=== PATIENT | male | born 1945 | race Caucasian/White ===

== ENCOUNTER 2021-01-22 12:33 | Outpatient (CLI) | payer MEDICARE, OTHER | END 2021-01-22 12:34 | disposition home or self-care (01) | LOC: EEG 12:33 → BICMRI 12:34 | PROVIDERS: ATTEND Nurse Practitioner Acute Care | DX: G40.909 Epilepsy, unspecified, not intractable, without status epilepticus (principal) | CPT/HCPCS: 70553; 95816 ==

== ENCOUNTER 2021-11-30 07:06 | Outpatient (CLI) | payer MEDICARE, OTHER ==
[2021-11-30 09:14] LABS: #Basophils 0.1 10x3/uL (0.0-0.2); #Eosinphils 0.3 10x3/uL (0.0-0.5); #Monocytes 0.7 10x3/uL (0.0-1.1); %Eosinophils 5.1 % (0.0-6.0); %Lymphocytes 23.8 % (18.0-47.0); %Monocytes 9.8 % (0.0-10.0); %Neutrophils 59.7 % (40.0-75.0); Hemoglobin 14.4 g/dL (13.5-17.5); Mean Corpuscular Hemoglobin 31.8 pg (27.0-33.0); Mean Corpuscular Volume 96.5 fl (81.2-95.1); Mean Platelet Volume 10.7 fl (7.4-10.4); Platelet Count 210 10x3/uL (150-450); RBC Distribution Width 12.6 % (11.5-14.5); Red Blood Cell (RBC) Count 4.53 10x6/uL (4.32-5.72); White Blood Cell (WBC) Count 6.7 10x3/uL (3.5-10.5)
[2021-11-30 10:06] LABS: Anion Gap 13 mmol/L (10-20); BUN (Urea Nitrogen) 12 mg/dL (8.4-25.7); Calc. Creatinine Clearance 0 mL/min (70-130); Calcium 8.8 mg/dL (7.8-10.44); Carbon Dioxide 25 mmol/L (23-31); Chloride 103 mmol/L (98-107); Glucose 88 mg/dL (83-110); Potassium 4.6 mmol/L (3.5-5.1); Sodium 136 mmol/L (136-145)
[2021-11-30 21:41] LABS: SARS-CoV-2 PCR by NAA Not Detected (NotDetected)
== END 2021-11-30 07:07 | disposition home or self-care (01) ==
LOC: LABBT 07:06
PROVIDERS: ATTEND Surgery
DX: Z01.818 Encounter for other preprocedural examination (principal); K43.2 Incisional hernia without obstruction or gangrene; Z20.822 Contact with and (suspected) exposure to COVID-19
CPT/HCPCS: 71046; 80048; 85025; U0003; U0005

== ENCOUNTER 2021-12-04 07:50 | Day surgery (SDC) | payer MEDICARE, OTHER ==
[2021-11-25 11:12] VITALS: BMI 25.8
[2021-12-04] MEDS ORDERED: Acetaminophen 500 MG TAB ONE ×2 (08:15→08:16)
[2021-12-04] MEDS ORDERED: Fentanyl 100 MCG/2 ML VIAL ONE ×3 (08:48→13:26)
[2021-12-04] MEDS ORDERED: Dexmedetomidine 200 MCG/2 ML VIAL ONE (08:48)
[2021-12-04] MEDS ORDERED: Bupivacaine 0.25% HCL 30 ML VIAL ONE (09:06)
[2021-12-04] MEDS ORDERED: EPINEPHrine 1 MG/ML AMP ONE (09:06)
[2021-12-04] MEDS ORDERED: ceFAZolin 2 GM/Dextrose 50 ML IVPB ONE (10:50)
[2021-12-04] MEDS ORDERED: ePHEDrine 50 MG/ML VIAL ONE (11:02)
[2021-12-04] MEDS ORDERED: Lidocaine 1% PF 5 ML VIAL ONE (11:02)
[2021-12-04] MEDS ORDERED: Glycopyrrolate 0.2 MG/ML 5 ML SYRINGE ONE (11:02)
[2021-12-04] MEDS ORDERED: Rocuronium Bromide 10 MG/ML (10ML VIAL) ONE (11:02)
[2021-12-04] MEDS ORDERED: Ondansetron PF 4 MG/2 ML Vial ONE ×2 (11:02→13:11)
[2021-12-04] MEDS ORDERED: PROPOFOL 200 MG/20 ML VIAL ONE (11:02)
[2021-12-04] MEDS ORDERED: Dexamethasone 20 MG/5 ML VIAL ONE (11:02)
[2021-12-04] MEDS ORDERED: Promethazine HCl 25 MG/ML VIAL ONE (14:13)
[2021-12-04] MEDS ORDERED: HYDROcodone/Acetaminophen 5/325 mg Tablet ONE (17:34)
== END 2021-12-04 18:10 | disposition home or self-care (01) ==
LOC: SDC 07:50
PROVIDERS: ATTEND Surgery
PROC: 0WUF4JZ Supplement Abdominal Wall with Synthetic Substitute, Percutaneous Endoscopic Approach (ICD-10-PCS; principal; 2021-12-04)
DX: K43.2 Incisional hernia without obstruction or gangrene (principal); K66.0 Peritoneal adhesions (postprocedural) (postinfection); G40.909 Epilepsy, unspecified, not intractable, without status epilepticus; Z79.83 Long term (current) use of bisphosphonates; Z79.899 Other long term (current) drug therapy; Z90.3 Acquired absence of stomach [part of]
CPT/HCPCS: 49654; C1713; C1781; J0171; J0690; J1100; J2405; J2550; J2704; J3010; J3490; S0020

== ENCOUNTER 2023-01-20 19:57 | Inpatient (IN) | payer MEDICARE ==
[2023-01-20] MEDS ORDERED: Ondansetron PF 4 MG/2 ML Vial IVP PRN (22:47)
[2023-01-20] MEDS ORDERED: Senokot S 8.6-50 MG TAB PO PRN (22:47)
[2023-01-20] MEDS ORDERED: Calcium Carbonate 500 MG ChewTAB PO PRN (22:47)
[2023-01-20] MEDS ORDERED: Ondansetron ODT 4 MG TAB PO PRN (22:47)
[2023-01-20 23:05] VITALS: BMI 25.1
[2023-01-20] MEDS ORDERED: Lorazepam 2 MG/ML VIAL SLOW IVP PRN (23:11)
[2023-01-20] MEDS ORDERED: Morphine 2 MG/ML VIAL SLOW IVP PRN (23:17)
[2023-01-20] MEDS ORDERED: Alendronate Sodium 70 mg Tablet PO SCH (23:45)
[2023-01-21] MEDS ORDERED: Lacosamide 50 mg Tablet PO SCH (01:00)
[2023-01-21] MEDS: HYDROcodone/Acetaminophen 5/325 mg Tablet PO PRN ×3 (01:24→21:37)
[2023-01-21 05:45] LABS: #Eosinphils 0.2 thou/uL (0.0-0.7); #Lymphocytes 0.9 thou/uL (1.20-3.40); #Monocytes 0.8 thou/uL (0.11-0.59); #Neutrophils 3.1 thou/uL (1.40-6.50); %Basophils 0.6 % (0.0-1.0); %Lymphocytes 18.1 % (21.0-51.0); %Monocytes 14.9 % (0.0-10.0); %Neutrophils 62.4 % (42.0-75.0); Hemoglobin 12.4 g/dL (14.0-18.0); Mean Corpuscular HGB CONC 33.5 g/dL (32.0-36.0); Mean Corpuscular Hemoglobin 32.4 pg (27.0-31.0); Mean Corpuscular Volume 96.9 fl (78.0-98.0); Mean Platelet Volume 8.9 fL (7.4-10.4); Platelet Count 155 10x3/uL (130-400); RBC Distribution Width 11.6 % (11.5-14.5); Red Blood Cell (RBC) Count 3.83 mill/uL (4.70-6.10)
[2023-01-21 05:59] LABS: ALT (SGPT) 31 U/L (8-55); AST (SGOT) 31 U/L (5-34); Albumin 3.1 g/dL (3.4-4.8); Alkaline Phosphatase 107 U/L (40-110); Anion Gap 10 mmol/L (10-20); BUN (Urea Nitrogen) 9 mg/dL (8.4-25.7); Bilirubin, Total 0.4 mg/dL (0.2-1.2); Calc. Creatinine Clearance 113 mL/min (70-130); Calcium 8.3 mg/dL (7.8-10.44); Carbon Dioxide 22 mmol/L (23-31); Chloride 106 mmol/L (98-107); Estimated GFR 99; Globulin 2.8 g/dL (2.4-3.5); Glucose 89 mg/dL (83-110); Magnesium 1.8 mg/dL (1.6-2.6); Protein, Total 5.9 g/dL (5.8-8.1); Sodium 134 mmol/L (136-145)
[2023-01-21] MEDS: Lacosamide 50 mg Tablet PO SCH ×2 (08:46→21:40)
[2023-01-21] MEDS: Thiamine 100 MG TAB PO SCH (08:48)
[2023-01-21] MEDS: levETIRAcetam 500 MG TAB PO SCH ×2 (08:48→21:39)
[2023-01-21] MEDS ORDERED: Lidocaine 4% Patch TD PRN (14:06)
[2023-01-21] MEDS ORDERED: clonazePAM 0.5 MG TAB PO PRN (14:11)
[2023-01-21] MEDS ORDERED: Iopamidol 370 76% 100 ML VIAL ONE (14:45)
[2023-01-21] MEDS: Acetaminophen 325 MG TAB PO PRN (18:04)
[2023-01-21] MEDS: Transdermal Patch Removal TOP SCH (23:37)
[2023-01-22] MEDS ORDERED: Lacosamide 50 mg Tablet PO SCH (01:00)
[2023-01-22 06:05] LABS: #Eosinphils 0.3 thou/uL (0.0-0.7); #Monocytes 0.5 thou/uL (0.11-0.59); #Neutrophils 2.8 thou/uL (1.40-6.50); %Basophils 0.3 % (0.0-1.0); %Eosinophils 6.7 % (0.0-10.0); %Lymphocytes 20.7 % (21.0-51.0); %Monocytes 10.7 % (0.0-10.0); %Neutrophils 61.5 % (42.0-75.0); Hemoglobin 12.8 g/dL (14.0-18.0); Mean Corpuscular HGB CONC 32.8 g/dL (32.0-36.0); Mean Corpuscular Hemoglobin 31.8 pg (27.0-31.0); Mean Corpuscular Volume 96.9 fl (78.0-98.0); Mean Platelet Volume 9.5 fL (7.4-10.4); Platelet Count 164 10x3/uL (130-400); RBC Distribution Width 11.7 % (11.5-14.5); Red Blood Cell (RBC) Count 4.03 mill/uL (4.70-6.10); White Blood Cell (WBC) Count 4.6 10x3/uL (4.8-10.8)
[2023-01-22 06:46] LABS: Anion Gap 12 mmol/L (10-20); BUN (Urea Nitrogen) 9 mg/dL (8.4-25.7); Calc. Creatinine Clearance 116 mL/min (70-130); Calcium 8.6 mg/dL (7.8-10.44); Carbon Dioxide 23 mmol/L (23-31); Chloride 105 mmol/L (98-107); Estimated GFR 100; Glucose 81 mg/dL (83-110); Potassium 4.1 mmol/L (3.5-5.1); Sodium 136 mmol/L (136-145)
[2023-01-22] MEDS: levETIRAcetam 500 MG TAB PO SCH ×2 (08:44→21:20)
[2023-01-22] MEDS: Cyanocobalamin (Vitamin B-12) 1,000 MCG TAB PO SCH (08:44)
[2023-01-22] MEDS: Lacosamide 50 mg Tablet PO SCH ×2 (08:44→21:21)
[2023-01-22] MEDS: Thiamine 100 MG TAB PO SCH ×2 (08:44→08:45)
[2023-01-22] MEDS: HYDROcodone/Acetaminophen 5/325 mg Tablet PO PRN ×2 (08:49→13:10)
[2023-01-22] MEDS ORDERED: Ergocalciferol 1.25 MG(50,000 UNITS) CAP PO SCH (09:00)
[2023-01-22] MEDS ORDERED: GoLYTELY 4,000 ml Bottle PO SCH (10:45)
[2023-01-22] MEDS: Transdermal Patch Removal TOP SCH (10:59)
[2023-01-22] MEDS ORDERED: Gadobenate Dimeglumine 529 MG/1 ML (20ML VIAL) ONE (15:10)
[2023-01-22] MEDS: HYDROcodone/Acetaminophen 10/325 mg Tablet PO PRN ×2 (16:53→21:19)
[2023-01-23] MEDS: Transdermal Patch Removal TOP SCH ×3 (00:24→19:08)
[2023-01-23 06:28] LABS: #Eosinphils 0.4 thou/uL (0.0-0.7); #Lymphocytes 1.1 thou/uL (1.20-3.40); #Monocytes 0.6 thou/uL (0.11-0.59); #Neutrophils 2.8 thou/uL (1.40-6.50); %Basophils 0.6 % (0.0-1.0); %Eosinophils 7.6 % (0.0-10.0); %Lymphocytes 22.3 % (21.0-51.0); %Monocytes 12.6 % (0.0-10.0); %Neutrophils 56.8 % (42.0-75.0); Hemoglobin 12.3 g/dL (14.0-18.0); Mean Corpuscular HGB CONC 33.4 g/dL (32.0-36.0); Mean Corpuscular Hemoglobin 32.6 pg (27.0-31.0); Mean Corpuscular Volume 97.6 fl (78.0-98.0); Mean Platelet Volume 8.8 fL (7.4-10.4); Platelet Count 173 10x3/uL (130-400); RBC Distribution Width 11.7 % (11.5-14.5); Red Blood Cell (RBC) Count 3.78 mill/uL (4.70-6.10)
[2023-01-23 06:48] LABS: Anion Gap 11 mmol/L (10-20); BUN (Urea Nitrogen) 11 mg/dL (8.4-25.7); Calc. Creatinine Clearance 113 mL/min (70-130); Calcium 8.3 mg/dL (7.8-10.44); Carbon Dioxide 29 mmol/L (23-31); Chloride 103 mmol/L (98-107); Estimated GFR 99; Glucose 82 mg/dL (83-110); Potassium 4.2 mmol/L (3.5-5.1); Sodium 139 mmol/L (136-145)
[2023-01-23] MEDS: Thiamine 100 MG TAB PO SCH (08:16)
[2023-01-23] MEDS: levETIRAcetam 500 MG TAB PO SCH ×2 (08:16→19:43)
[2023-01-23] MEDS: Cyanocobalamin (Vitamin B-12) 1,000 MCG TAB PO SCH (08:16)
[2023-01-23] MEDS ORDERED: PROPOFOL 200 MG/20 ML VIAL ONE (10:42)
[2023-01-23] MEDS ORDERED: Lidocaine 1% PF 5 ML VIAL ONE (10:42)
[2023-01-23] MEDS ORDERED: ePHEDrine 50 MG/ML VIAL ONE (10:42)
[2023-01-23] MEDS: HYDROcodone/Acetaminophen 10/325 mg Tablet PO PRN (12:44)
[2023-01-23] MEDS: Lacosamide 50 mg Tablet PO SCH ×2 (12:45→19:43)
[2023-01-24 06:33] LABS: #Eosinphils 0.3 thou/uL (0.0-0.7); #Lymphocytes 0.8 thou/uL (1.20-3.40); #Monocytes 0.7 thou/uL (0.11-0.59); #Neutrophils 4.3 thou/uL (1.40-6.50); %Basophils 0.1 % (0.0-1.0); %Eosinophils 4.2 % (0.0-10.0); %Lymphocytes 13.4 % (21.0-51.0); %Neutrophils 70.3 % (42.0-75.0); Hemoglobin 12.7 g/dL (14.0-18.0); Mean Corpuscular HGB CONC 32.9 g/dL (32.0-36.0); Mean Corpuscular Hemoglobin 31.9 pg (27.0-31.0); Mean Corpuscular Volume 97.1 fl (78.0-98.0); Mean Platelet Volume 8.7 fL (7.4-10.4); Platelet Count 169 10x3/uL (130-400); RBC Distribution Width 11.8 % (11.5-14.5); Red Blood Cell (RBC) Count 3.97 mill/uL (4.70-6.10)
[2023-01-24 06:56] LABS: ALT (SGPT) 39 U/L (8-55); AST (SGOT) 43 U/L (5-34); Albumin 2.9 g/dL (3.4-4.8); Alkaline Phosphatase 110 U/L (40-110); Anion Gap 12 mmol/L (10-20); BUN (Urea Nitrogen) 8 mg/dL (8.4-25.7); Bilirubin, Total 0.5 mg/dL (0.2-1.2); Calc. Creatinine Clearance 113 mL/min (70-130); Calcium 8.7 mg/dL (7.8-10.44); Carbon Dioxide 25 mmol/L (23-31); Chloride 103 mmol/L (98-107); Estimated GFR 99; Globulin 2.9 g/dL (2.4-3.5); Glucose 85 mg/dL (83-110); Potassium 4.7 mmol/L (3.5-5.1); Protein, Total 5.8 g/dL (5.8-8.1); Sodium 135 mmol/L (136-145)
[2023-01-24] MEDS: Transdermal Patch Removal TOP SCH ×2 (07:45→20:45)
[2023-01-24] MEDS: Cyanocobalamin (Vitamin B-12) 1,000 MCG TAB PO SCH (09:00)
[2023-01-24] MEDS: levETIRAcetam 500 MG TAB PO SCH ×2 (09:01→20:33)
[2023-01-24] MEDS: Thiamine 100 MG TAB PO SCH (09:01)
[2023-01-24] MEDS: Lacosamide 50 mg Tablet PO SCH ×2 (10:38→20:33)
[2023-01-24] MEDS ORDERED: Iopamidol-370 76% 500 ML 1 ML ONE (11:09)
[2023-01-24] MEDS: Acetaminophen 325 MG TAB PO PRN (20:34)
[2023-01-25] MEDS: Cyanocobalamin (Vitamin B-12) 1,000 MCG TAB PO SCH (08:18)
[2023-01-25] MEDS: levETIRAcetam 500 MG TAB PO SCH (08:18)
[2023-01-25] MEDS: Transdermal Patch Removal TOP SCH (08:19)
[2023-01-25] MEDS: Thiamine 100 MG TAB PO SCH (08:19)
[2023-01-25 08:58] VITALS: BP 116/71; TEMP 97.7
[2023-01-25] MEDS: Lacosamide 50 mg Tablet PO SCH (09:37)
== END 2023-01-25 11:29 | disposition home or self-care (01) | DRG 436 ==
LOC: MSONC 19:57 → OBSVTOIN 22:47
PROVIDERS: ADMIT Student in an Organized Health Care Education/Training Program; ATTEND Internal Medicine
PROC: 0DBK8ZX Excision of Ascending Colon, Via Natural or Artificial Opening Endoscopic, Diagnostic (ICD-10-PCS; principal; 2023-01-23)
PROC: 0DBA8ZX Excision of Jejunum, Via Natural or Artificial Opening Endoscopic, Diagnostic (ICD-10-PCS; 2023-01-23)
DX: C78.7 Secondary malignant neoplasm of liver and intrahepatic bile duct (principal); E44.0 Moderate protein-calorie malnutrition; E87.1 Hypo-osmolality and hyponatremia; G40.909 Epilepsy, unspecified, not intractable, without status epilepticus; D64.9 Anemia, unspecified; Z20.822 Contact with and (suspected) exposure to COVID-19; Z79.899 Other long term (current) drug therapy; Z68.25 Body mass index [BMI] 25.0-25.9, adult; E86.0 Dehydration; C80.1 Malignant (primary) neoplasm, unspecified
CPT/HCPCS: 36415; 70470; 70553; 71260; 80048; 80053; 82378; 83735; 85025; 86301; 88305; 88341; 88342; A9577; J2272; J2405; J2704; J3490; Q9967; U0003; U0005

== ENCOUNTER 2023-02-05 12:02 | Emergency (ER) | payer MEDICARE, OTHER ==
[2023-02-05] MEDS ORDERED: HYDROcodone/Acetaminophen 5/325 mg Tablet ONE (13:13)
[2023-02-05 13:24] LABS: #Eosinphils 0.2 thou/uL (0.0-0.7); #Lymphocytes 0.9 thou/uL (1.20-3.40); #Monocytes 0.7 thou/uL (0.11-0.59); #Neutrophils 4.3 thou/uL (1.40-6.50); %Basophils 0.4 % (0.0-1.0); %Eosinophils 2.9 % (0.0-10.0); %Lymphocytes 14.8 % (21.0-51.0); %Monocytes 11.5 % (0.0-10.0); %Neutrophils 70.4 % (42.0-75.0); Hemoglobin 12.3 g/dL (14.0-18.0); Mean Corpuscular HGB CONC 34.2 g/dL (32.0-36.0); Mean Corpuscular Hemoglobin 32.6 pg (27.0-31.0); Mean Corpuscular Volume 95.1 fl (78.0-98.0); Mean Platelet Volume 8.6 fL (7.4-10.4); Platelet Count 193 10x3/uL (130-400); RBC Distribution Width 11.8 % (11.5-14.5); Red Blood Cell (RBC) Count 3.78 mill/uL (4.70-6.10); White Blood Cell (WBC) Count 6.1 10x3/uL (4.8-10.8)
[2023-02-05 13:45] LABS: ALT (SGPT) 30 U/L (8-55); AST (SGOT) 38 U/L (5-34); Albumin 3.1 g/dL (3.4-4.8); Alkaline Phosphatase 138 U/L (40-110); Anion Gap 13 mmol/L (10-20); BUN (Urea Nitrogen) 8 mg/dL (8.4-25.7); Bilirubin, Total 0.5 mg/dL (0.2-1.2); Calc. Creatinine Clearance 0 mL/min (70-130); Calcium 8.2 mg/dL (7.8-10.44); Carbon Dioxide 20 mmol/L (23-31); Chloride 104 mmol/L (98-107); Estimated GFR 103; Glucose 97 mg/dL (83-110); Lipase Less than 4 U/L (8-78); Potassium 3.9 mmol/L (3.5-5.1); Protein, Total 6.1 g/dL (5.8-8.1); Sodium 133 mmol/L (136-145)
[2023-02-05 14:06] LABS: Bilirubin Negative (Negative); Blood, Urine Negative (Negative); Clarity Clear (Clear); Glucose, Urine (Dipstick) Normal (Negative); Ketone, Urine 40 mg/dL (Negative); Leukocyte Negative Leu/uL (Negative); Nitrite Negative (Negative); Protein, Urine (Dipstick) Negative (Neg-Trace); Specific Gravity, Urine 1.017 (1.002-1.036); pH, Urine 5.5 (5.0-9.0)
[2023-02-05] MEDS ORDERED: Morphine 4 MG/ML VIAL ONE (15:29)
[2023-02-05] MEDS ORDERED: Ketorolac Tromethamine 30 MG/ML VIAL ONE (15:30)
== END 2023-02-05 16:10 | disposition home or self-care (01) ==
LOC: ERS 12:02
DX: M54.9 Dorsalgia, unspecified (principal)
CPT/HCPCS: 36415; 71045; 80053; 81003; 83690; 84484; 85025; 93005; 96374; 96375; J1885; J2270

== ENCOUNTER 2023-02-11 11:33 | Day surgery (SDC) | payer MEDICARE, OTHER ==
[2023-02-09 11:05] VITALS: BMI 23.6
[2023-02-11] MEDS ORDERED: Bupivacaine/Epinephrine 0.25% 30 ML VIAL ONE (13:36)
[2023-02-11] MEDS ORDERED: Lidocaine 2% PF 5 ML VIAL ONE (13:36)
[2023-02-11] MEDS ORDERED: PROPOFOL 20 ML ONE (13:39)
[2023-02-11] MEDS ORDERED: fentaNYL 50 mcg/mL 1 mL Vial ONE (13:39)
[2023-02-11] MEDS ORDERED: CEFAZOLIN 2 GM VIAL ONE (13:56)
[2023-02-11] MEDS ORDERED: Sodium Chloride 0.9% 100 ML ONE (13:56)
[2023-02-11] MEDS ORDERED: PROPOFOL 200 MG/20 ML VIAL ONE (14:18)
== END 2023-02-11 15:50 | disposition home or self-care (01) ==
LOC: SDC 11:33
PROVIDERS: ATTEND Surgery
PROC: 0JH60WZ Insertion of Totally Implantable Vascular Access Device into Chest Subcutaneous Tissue and Fascia, Open Approach (ICD-10-PCS; principal; 2023-02-11)
PROC: 02HV33Z Insertion of Infusion Device into Superior Vena Cava, Percutaneous Approach (ICD-10-PCS; 2023-02-11)
PROC: B518ZZA Fluoroscopy of Superior Vena Cava, Guidance (ICD-10-PCS; 2023-02-11)
DX: C43.9 Malignant melanoma of skin, unspecified (principal); C78.4 Secondary malignant neoplasm of small intestine; C78.7 Secondary malignant neoplasm of liver and intrahepatic bile duct; R53.81 Other malaise; G40.909 Epilepsy, unspecified, not intractable, without status epilepticus; Z85.840 Personal history of malignant neoplasm of eye; Z87.11 Personal history of peptic ulcer disease; Z87.891 Personal history of nicotine dependence; Z79.83 Long term (current) use of bisphosphonates; Z79.891 Long term (current) use of opiate analgesic; Z79.899 Other long term (current) drug therapy; Z77.29 Contact with and (suspected) exposure to other hazardous substances
CPT/HCPCS: 36561; 71045; C1788; J1642; J2001; J2704; J3010; J3490

== ENCOUNTER 2023-02-16 11:45 | Outpatient (CLI) | payer MEDICARE, OTHER | END 2023-02-16 11:46 | LOC: PET 11:45 | PROVIDERS: ATTEND Internal Medicine | DX: C43.9 Malignant melanoma of skin, unspecified (principal); R91.1 Solitary pulmonary nodule; C78.7 Secondary malignant neoplasm of liver and intrahepatic bile duct; C79.51 Secondary malignant neoplasm of bone | CPT/HCPCS: 78815; A9552 ==

== ENCOUNTER 2023-03-29 08:00 | Outpatient (CLI) | payer MEDICARE, OTHER | END 2023-03-29 08:01 | disposition home or self-care (01) | LOC: PET 08:00 | PROVIDERS: ATTEND Internal Medicine | DX: C43.9 Malignant melanoma of skin, unspecified (principal); C22.9 Malignant neoplasm of liver, not specified as primary or secondary; R91.1 Solitary pulmonary nodule; Z79.899 Other long term (current) drug therapy | CPT/HCPCS: 78816; A9552 ==

== ENCOUNTER 2023-03-29 12:40 | Outpatient (CLI) | payer MEDICARE, OTHER | END 2023-03-29 12:41 | disposition home or self-care (01) | LOC: SCSMRI 12:40 | PROVIDERS: ATTEND Internal Medicine | DX: C43.9 Malignant melanoma of skin, unspecified (principal); C78.7 Secondary malignant neoplasm of liver and intrahepatic bile duct; R41.0 Disorientation, unspecified; M89.58 Osteolysis, other site | CPT/HCPCS: 70553 ==